=== PATIENT | male | born 1985 | race Caucasian/White ===

== ENCOUNTER → 2021-09-27 14:27 | Outpatient (CLI) | payer MEDICARE, MEDICAID, SELFPAY ==
--- NOTE | 2021-09-27 | DI.RAD.S_ITS ---
PROCEDURE: XR LUMBAR SPINE 2-3V INDICATIONS: LOWER BACK PAIN TECHNIQUE: 3 views of the lumbar spine were acquired. COMPARISON: None. FINDINGS: Bones: 5 [id number] vertebrae are present. There is normal bony alignment. No vertebral body compression fractures. No suspicious bony lesions. Soft tissues: Overlying bowel gas pattern is normal. No suspicious soft tissue calcifications. IMPRESSION: No osseous lesion. If symptoms and/or clinical suspicion for pathology persists, evaluation with MRI should be considered for further assessment. Dictated by: Jody Leary MD, PhD on 09/27/2021 at 15:09 Approved by: Jody Leary MD, PhD on 09/27/2021 at 15:10
== END ==
PROVIDERS: PCP Internal Medicine; Referring Provider Internal Medicine; Visit Provider Internal Medicine
DX: M54.50 Low back pain, unspecified (principal)
CPT/HCPCS: 72100

== ENCOUNTER 2023-03-03 05:57 | Emergency (ER) | payer MEDICARE, MEDICAID, SELFPAY ==
[2023-03-03] VITALS (9 sets, daily range): BP systolic 137–158; BP diastolic 79–107; PULSE 74–90; RESP 18–20; TEMP 36.1; O2SAT 95–100; BMI 30.4
--- NOTE | 2023-03-03 06:10 | DI.US.S_ITS ---
PROCEDURE: US ABDOMEN LIMITED INDICATIONS: RIGHT UPPER QUADRANT PAIN TECHNIQUE: Real-time scanning was performed of the abdominal and retroperitoneal organs, with image documentation. COMPARISON: None. FINDINGS: Liver: Liver is normal in size and homogeneous in echotexture. Gallbladder: Cholelithiasis, including a nonmobile stone at the neck measuring 8 millimeters. There is mild wall thickening, measuring over 3 millimeters. Biliary ducts: Intrahepatic bile ducts are non-dilated. Extrahepatic bile duct caliber measures 6 mm. Normal is 6-7 mm or less in diameter, or 10 mm or less post-cholecystectomy. Pancreas: Visualized portions of the pancreas are sonographically normal. Right kidney: Normal size and echogenicity. No hydronephrosis. Miscellaneous: No free abdominal fluid. IMPRESSION: Cholelithiasis, including a non mobile gallstone at the neck. Additionally, there is wall thickening. Findings are concerning for acute cholecystitis. Dictated by: Joaquin Flowers M.D. on 03/03/2023 at 8:28 Approved by: Joaquin Flowers M.D. on 03/03/2023 at 8:29
--- NOTE | 2023-03-03 06:14 | ED.GENADULT ---
HPI - General Adult <Daniel Zamarripa DO - Last Filed: 03/03/23 20:05> General Chief complaint: Abdominal Pain Stated complaint: vomiting Time Seen by Provider: 03/03/23 06:04 Source: patient Mode of arrival: Ambulatory History of Present Illness HPI narrative: 38-year-old male here for evaluation of right upper quadrant abdominal pain. He is also having vomiting. No urinary symptoms. Has not had a bowel movement since the onset of the pain. He states the pain started approximately 4 hours ago. He would similar pain a couple days ago but it went away on its own. No prior abdominal surgeries. Chest pain. No shortness of breath. Related Data Home Medications Medication Instructions Recorded Confirmed paroxetine HCl 40 mg tablet PO 90 days 08/21/17 08/21/17 Previous Rx's Medication Instructions Recorded alprazolam 0.25 mg tablet 0.25 mg PO BID PRN anxiety #50 tabs 10/23/17 Allergies Allergy/AdvReac Type Severity Reaction Status Date / Time Penicillins Allergy Unknown Verified 03/03/23 06:15 Review of Systems <DO Dax Bentley Last Filed: 03/03/23 20:05> Constitutional Constitutional: Reports system reviewed and no additional complaints, except as documented Cardiovascular Cardiovascular: Reports system reviewed and no additional complaints, except as documented Respiratory Respiratory: Reports system reviewed and no additional complaints, except as documented Gastrointestinal Gastrointestinal: Reports system reviewed and no additional complaints, except as documented Genitourinary Genitourinary: Reports system reviewed and no additional complaints, except as documented Integumentary/Breasts Skin/Breast: Reports system reviewed and no additional complaints, except as documented Hematologic/Lymphatic On Anticoagulants: No Patient History <DO Dax Bentley Last Filed: 03/03/23 20:05> Social History Smoking Status: Former smoker Smoking Status: Former smoker Substance Use Type: does not use Exam <DO Dax Bentley Last Filed: 03/03/23 20:05> Initial Vital Signs Initial Vital Signs: Vital Signs Blood Pressure 158/103 H 03/03/23 06:01 Const General: cooperative and No ill appearing HENMT Head: normal to inspection and normocephalic Resp Effort & Inspection: normal respiratory effort Cardio Rate: regular rate GI Inspection: normal to inspection and non-distended Palpation: soft, No firm, guarding and tender (Right upper quadrant) Back/Spine/Pelvis Back: No CVA tenderness Neuro General: patient alert, patient awake and moves all extremities Extrem General: capillary refill normal <Tristin Wade MD - Last Filed: 03/03/23 18:48> Initial Vital Signs Initial Vital Signs: Vital Signs Blood Pressure 158/103 H 03/03/23 06:01 Course <Daniel Zamraripa DO - Last Filed: 03/03/23 20:05> Orders Ordered: Discontinued Medications Hydromorphone HCl (Hydromorphone 1 Mg Inj) 1 mg IV NOW ONE Stop: 03/03/23 08:13 Last Admin: 03/03/23 08:36 Dose: Not Given Documented By: JENNIFER Ketorolac Tromethamine (Ketorolac 30 Mg/Ml Vial) 30 mg IV NOW ONE Stop: 03/03/23 06:11 Last Admin: 03/03/23 06:20 Dose: 30 mg Documented By: TAM Morphine Sulfate (Morphine 4 Mg/Ml Inj) 4 mg IV NOW ONE Stop: 03/03/23 06:36 Last Admin: 03/03/23 06:41 Dose: 4 mg Documented By: TAM Ondansetron HCl (Ondansetron 4 Mg/2 Ml Inj) 4 mg IV NOW ONE Stop: 03/03/23 06:11 Last Admin: 03/03/23 06:20 Dose: 4 mg Documented By: TAM Vital Signs Vital signs: Vital Signs - 8 hr 03/03/23 06:01 03/03/23 06:02 03/03/23 06:05 Temperature 97 F L Pulse Rate 90 87 Respiratory Rate 18 Blood Pressure 158/103 H 158/107 H Pulse Oximetry 100 100 Oxygen Delivery Method Room Air 03/03/23 06:30 03/03/23 06:30 03/03/23 07:00 Temperature Pulse Rate 74 81 Respiratory Rate Blood Pressure 154/91 H Pulse Oximetry 100 97 Oxygen Delivery Method Room Air 03/03/23 07:30 03/03/23 07:30 Temperature Pulse Rate 74 Respiratory Rate Blood Pressure 137/87 Pulse Oximetry 96 Oxygen Delivery Method <Tristin Wade MD - Last Filed: 03/03/23 18:48> Course Course Narrative: Patient evaluated as above, workup suggest acute cholecystitis and he is continuing to have symptoms. I recommended general surgery consultation and admission with probable cholecystectomy, the patient declined this. Stated he wanted to get a 2nd opinion. He seemed to be fully capable of understanding information presented to him and making an informed decision. He was specifically informed of risks to include critical illness and . He was also specifically informed that he would be welcome to return at any point and indications for return were reviewed. Orders Ordered: Discontinued Medications Hydromorphone HCl (Hydromorphone 1 Mg Inj) 1 mg IV NOW ONE Stop: 03/03/23 08:13 Last Admin: 03/03/23 08:36 Dose: Not Given Documented By: EJNNIFER Ketorolac Tromethamine (Ketorolac 30 Mg/Ml Vial) 30 mg IV NOW ONE Stop: 03/03/23 06:11 Last Admin: 03/03/23 06:20 Dose: 30 mg Documented By: TAM Morphine Sulfate (Morphine 4 Mg/Ml Inj) 4 mg IV NOW ONE Stop: 03/03/23 06:36 Last Admin: 03/03/23 06:41 Dose: 4 mg Documented By: TAM Ondansetron HCl (Ondansetron 4 Mg/2 Ml Inj) 4 mg IV NOW ONE Stop: 03/03/23 06:11 Last Admin: 03/03/23 06:20 Dose: 4 mg Documented By: TAM Reevaluation(s) Reevaluation #1: Based on preliminary ultrasound report which indicates nonmobile stone in the gallbladder neck and borderline thickening of the gallbladder wall with his continuing symptoms I have spoken to General surgery. Patient was advised of this, and at this point he is reluctant to see the surgeon. I explained the risks of severe illness and pancreatitis and that he would not have any surgery before consenting, the patient is not sure that he wants to see the surgeon at this point. Consultations Consultation #1: D/W Dr Cedillo- will consult Vital Signs Vital signs: Vital Signs - 8 hr 03/03/23 06:01 03/03/23 06:02 03/03/23 06:05 Temperature 97 F L Pulse Rate 90 87 Respiratory Rate 18 Blood Pressure 158/103 H 158/107 H Pulse Oximetry 100 100 Oxygen Delivery Method Room Air 03/03/23 06:30 03/03/23 06:30 03/03/23 07:00 Temperature Pulse Rate 74 81 Respiratory Rate Blood Pressure 154/91 H Pulse Oximetry 100 97 Oxygen Delivery Method Room Air 03/03/23 07:30 03/03/23 07:30 Temperature Pulse Rate 74 Respiratory Rate Blood Pressure 137/87 Pulse Oximetry 96 Oxygen Delivery Method Medical Decision Making <Daniel Zamarripa DO - Last Filed: 03/03/23 20:05> Lab Data 03/03/23 06:10 03/03/23 06:10 Labs: Lab Results 03/03/23 Range/Units 06:10 WBC 8.3 (4.5-11.0) X10^3/uL RBC 5.14 (4.5-5.9) X10^6/uL Hgb 14.5 (13.5-17.5) g/dL Hct 41.5 (41-53) % MCV 80.7 (80-100) fL MCH 28.2 (26-34) PG MCHC 34.9 (30-36) % RDW 14.1 (11.6-14.8) % Plt Count 196 (150-400) X10^3/uL Neut % (Auto) 71.0 (50-75) % Lymph % (Auto) 22.2 L (25-40) % Isabela % (Auto) 5.4 (3-14) % Eos % (Auto) 0.9 L (2-4) % Baso % (Auto) 0.5 (0-2) % Neut # (Auto) 5900 (3402-6351) /uL Lymph # (Auto) 1900 (2962-1116) /uL Isabela # (Auto) 400 (0-900) /uL Eos # (Auto) 100 (0-450) /uL Baso # (Auto) 0 (0-100) /uL Sodium 138 (137-145) mmol/L Potassium 4.0 (3.4-5.1) mmol/L Chloride 105 (98-107) mmol/L Carbon Dioxide 26 (22-32) mmol/L BUN 18 (9-20) mg/dL Creatinine 0.95 (0.66-1.25) mg/dL Estimated GFR > 60 (>60) mL/min BUN/Creatinine Ratio 18.9 (6-22) Glucose 122 H (70-100) mg/dL Calcium 10.1 (8.4-10.2) mg/dL Total Bilirubin 0.6 (0.2-1.3) mg/dL AST 31 (17-59) IU/L ALT 35 (<50) IU/L Alkaline Phosphatase 83 (38-126) U/L Total Creatine Kinase 161 (55-170) U/L Troponin I < 0.012 (0.01-0.034) ng/mL Total Protein 8.0 (6.3-8.2) g/dL Albumin 4.5 (3.5-5.0) g/dL Globulin 3.5 (1.7-4.1) g/dL Albumin/Globulin Ratio 1.3 (1.0-2.8) Lipase 141 (23-300) U/L MDM Narrative Medical decision making narrative: Patient has right upper quadrant pain. Vomiting. No fevers. No leukocytosis. LFTs and lipase unremarkable. Right upper quadrant ultrasound ordered. Pain medications ordered. Care turned over to Dr. Wade to follow-up and disposition. <Tristin Wade MD - Last Filed: 03/03/23 18:48> Lab Data Lab results narrative: CBC, CMP and lipase are reassuring without significant abnormality Labs: Lab Results 03/03/23 Range/Units 06:10 WBC 8.3 (4.5-11.0) X10^3/uL RBC 5.14 (4.5-5.9) X10^6/uL Hgb 14.5 (13.5-17.5) g/dL Hct 41.5 (41-53) % MCV 80.7 (80-100) fL MCH 28.2 (26-34) PG MCHC 34.9 (30-36) % RDW 14.1 (11.6-14.8) % Plt Count 196 (150-400) X10^3/uL Neut % (Auto) 71.0 (50-75) % Lymph % (Auto) 22.2 L (25-40) % Isabela % (Auto) 5.4 (3-14) % Eos % (Auto) 0.9 L (2-4) % Baso % (Auto) 0.5 (0-2) % Neut # (Auto) 5900 (0205-0174) /uL Lymph # (Auto) 1900 (6639-6832) /uL Isabela # (Auto) 400 (0-900) /uL Eos # (Auto) 100 (0-450) /uL Baso # (Auto) 0 (0-100) /uL Sodium 138 (137-145) mmol/L Potassium 4.0 (3.4-5.1) mmol/L Chloride 105 (98-107) mmol/L Carbon Dioxide 26 (22-32) mmol/L BUN 18 (9-20) mg/dL Creatinine 0.95 (0.66-1.25) mg/dL Estimated GFR > 60 (>60) mL/min BUN/Creatinine Ratio 18.9 (6-22) Glucose 122 H (70-100) mg/dL Calcium 10.1 (8.4-10.2) mg/dL Total Bilirubin 0.6 (0.2-1.3) mg/dL AST 31 (17-59) IU/L ALT 35 (<50) IU/L Alkaline Phosphatase 83 (38-126) U/L Total Creatine Kinase 161 (55-170) U/L Troponin I < 0.012 (0.01-0.034) ng/mL Total Protein 8.0 (6.3-8.2) g/dL Albumin 4.5 (3.5-5.0) g/dL Globulin 3.5 (1.7-4.1) g/dL Albumin/Globulin Ratio 1.3 (1.0-2.8) Lipase 141 (23-300) U/L Imaging Data abd US: Radiologist's Impression: holelithiasis, including a non mobile gallstone at the neck. Additionally, there is wall thickening. Findings are concerning for acute cholecystitis. MDM Narrative Medical decision making narrative: Patient has right upper quadrant pain. Vomiting. No fevers. No leukocytosis. LFTs and lipase unremarkable. Right upper quadrant ultrasound ordered. Pain medications ordered. Care turned over to Dr. Wade to follow-up and disposition. 38-year-old male presenting with right upper quadrant pain. Considered cholecystitis pancreatitis among possible etiologies. Workup did in fact suggest cholecystitis. Patient was advised of this, he elected to leave against medical advice rather than staying for surgical consultation. Patient was stable when fully decisional at the time of discharge. Discharge Plan Departure Patient Disposition: Left Against Medical Advice Clinical Impression: Acute cholecystitis Instructions: DI for Abdominal Pain-Adult Activity Restrictions/Additional Instructions: We are discharging you against medical advice. We have discussed my impression that you have acute cholecystitis, on inflammation of the gallbladder that could result in critical illness or even . I recognize your right to make an informed decision and I hope that I have given you all the information you requested. I recommend that you contact your primary care provider for further advice as soon as possible. If you are having increasing pain, vomiting, fevers return to the emergency department. We will be happy to take care of you. Prescriptions: No Action paroxetine HCl 40 mg tablet PO 90 Days alprazolam 0.25 mg tablet 0.25 mg PO BID PRN (Reason: anxiety) Qty: 50 0RF Referrals: Priscila Romero ARNP [Primary Care Provider] - Stand Alone Forms: Patient Portal/API, Against Medical Advice
[2023-03-03] MEDS: ONDANSETRON 4 MG/2 ML INJ IV (06:20)
[2023-03-03] MEDS: KETOROLAC 30 MG/ML VIAL IV (06:20)
[2023-03-03 06:29] LABS: Add Manual Diff / Slide Review NO; Basophils Absolute Auto 0 /uL (0-100); Basophils Percent Auto 0.5 % (0-2); Eosinophils Absolute Auto 100 /uL (0-450); Eosinophils Percent Auto 0.9 % (2-4); Hematocrit 41.5 % (41-53); Hemoglobin 14.5 g/dL (13.5-17.5); Lymphocytes Absolute Auto 1900 /uL (1100-4500); Lymphocytes Percent Auto 22.2 % (25-40); Mean Corpuscular HGB Conc 34.9 % (30-36); Mean Corpuscular Hemoglobin 28.2 PG (26-34); Mean Corpuscular Volume 80.7 fL (80-100); Monocytes Absolute Auto 400 /uL (0-900); Monocytes Percent Auto 5.4 % (3-14); Neutrophils Absolute Auto 5900 /uL (1500-7000); Platelet Count 196 X10^3/uL (150-400); Red Blood Cell Count 5.14 X10^6/uL (4.5-5.9); Red Cell Distribution Width 14.1 % (11.6-14.8); White Blood Cell Count 8.3 X10^3/uL (4.5-11.0)
[2023-03-03 06:34] LABS: Alanine Aminotransferase 35 IU/L (<50); Albumin 4.5 g/dL (3.5-5.0); Albumin Globulin Ratio 1.3 (1.0-2.8); Alkaline Phosphatase 83 U/L (38-126); Aspartate Aminotransferase 31 IU/L (17-59); BUN Creatinine Ratio 18.9 (6-22); Bilirubin Total 0.6 mg/dL (0.2-1.3); Blood Urea Nitrogen 18 mg/dL (9-20); Calcium 10.1 mg/dL (8.4-10.2); Carbon Dioxide 26 mmol/L (22-32); Chloride 105 mmol/L (98-107); Creatine Kinase 161 U/L (55-170); Estimated Glomerular Filt Rate > 60 mL/min (>60); Globulin 3.5 g/dL (1.7-4.1); Glucose 122 mg/dL (70-100); HEMOLYSIS 19 (0-50); Lipase 141 U/L (23-300); Sodium 138 mmol/L (137-145)
[2023-03-03] MEDS: MORPHINE 4 MG/ML INJ IV (06:41)
--- NOTE | 2023-03-03 06:41 | PC.NURSE ---
pt medicated for unrelieved pain, pain easing and pt starting to rest before medication completely given
[2023-03-03 06:45] LABS: Troponin I < 0.012 ng/mL (0.01-0.034)
--- NOTE | 2023-03-03 08:15 | PC.NURSE ---
Pt states he last had food 03/02/24 at 2100, and last had PO water sips at 0700 this morning, 03/03/23. Pt was informed not to drink or eat anything. Pt states he is already aware of no food/water. I again reminded patient not to eat or drink.
--- NOTE | 2023-03-03 08:34 | PC.NURSE ---
Pt states he is in 6/10 abdominal pain. Provider notified and placed an order for medication. Pt was offered medication but refused for now and that he wants to discuss his findings with his first.
--- NOTE | 2023-03-03 08:40 | PC.NURSE ---
Provider at bedside to discuss findings with patient and his . Patient and expressed understanding, however state they would like to follow up with their PCP in order to establish a second opinion. Pt and were informed by the provider of significance of patient's findings and his need for emergent surgery. Pt signed out and discharged against medical advice.
== END 2023-03-03 08:50 | disposition left against medical advice (07) ==
PROVIDERS: Emergency Medicine; Emergency Provider Emergency Medicine; PCP Internal Medicine
DX: K81.0 Acute cholecystitis (principal); Z53.29 Procedure and treatment not carried out because of patient's decision for other reasons
CPT/HCPCS: 36415; 76705; 80053; 82550; 83690; 84484; 85025; 96374; 96375; 99284; J1885; J2270; J2405

== ENCOUNTER → 2023-03-08 06:33 | Outpatient (CLI) | payer MEDICARE, MEDICAID, SELFPAY ==
--- NOTE | 2023-03-08 | DI.US.S_ITS ---
PROCEDURE: US ABDOMEN LIMITED INDICATIONS: CALCULUS OF GALLBLADDER TECHNIQUE: Real-time focused scanning was performed of the abdomen, with image documentation. COMPARISON: [facility], [place], US ABDOMEN LIMITED, 03/03/2023, 7:39. FINDINGS: The liver demonstrates normal size. The liver demonstrates generalized moderately increased echogenicity. This decreases ultrasound sensitivity for detection of hepatic masses. Multiple gallstones can be seen within the gallbladder. The previously seen stone that was nonmobile the gallbladder neck now appears mobile. Additionally, there is mobile debris/sludge seen. The gallbladder wall is minimally thickened at 4.2 mm. No specific pericholecystic fluid is seen. The sonographic [place] sign is negative. There is no biliary dilatation, the common bile duct measures 3-4 mm. The pancreas is not well seen. No free fluid is seen. IMPRESSION: Gallstones can be seen within the gallbladder, which appear mobile. The previously seen nonmobile gallstone within the gallbladder neck now appears mobile. Additionally, there is sludge and debris within the gallbladder lumen. The gallbladder wall is minimally thickened at 4.2 mm. The liver demonstrates increased echogenicity. This finding is nonspecific, yet it is most commonly attributed to fatty infiltration. Dictated by: Fahad Reis M.D. on 03/08/2023 at 17:35 Approved by: Fahad Reis M.D. on 03/08/2023 at 17:37
== END ==
PROVIDERS: PCP Family Medicine; Referring Provider Family Medicine; Visit Provider Family Medicine
DX: K80.20 Calculus of gallbladder without cholecystitis without obstruction (principal)
CPT/HCPCS: 76705